=== PATIENT | female | born 1990 | race Caucasian/White ===

== ENCOUNTER 2016-06-04 20:22 | Emergency (ER) | payer OTHER ==
[2016-06-04] MEDS ORDERED: Morphine INJ* 4 MG/ML 1 ML CARPUJECT IV ONE (21:39)
[2016-06-04] MEDS ORDERED: Ondansetron INJ* 2 MG/ML VIAL IV ONE (21:39)
[2016-06-04] MEDS ORDERED: NS 0.9% 1000 ML* 1,000 ML IV ONE (21:39)
[2016-06-04 23:47] LABS: Hematocrit 36 % (35-47); Hemoglobin 12.5 g/dl (12.0-16.0); Mean Corpuscular HGB Conc 34 g/dl (31-36); Mean Corpuscular Hemoglobin 30 pg (27-31); Mean Corpuscular Volume 88 fL (80-97); Mean Platelet Volume 8 um3 (7.4-10.4); Red Blood Count 4.12 10^6/ul (4.0-5.4); Red Cell Distribution Width 13 % (10.5-15)
[2016-06-04 23:56] LABS: Urine Bacteria Absent (Absent); Urine Bilirubin Negative (Negative); Urine Glucose Negative (Negative); Urine Nitrite Negative (Negative)
[2016-06-05 00:04] LABS: Albumin 3.8 g/dL (3.2-5.2); BUN/Creatinine Ratio 17.6 (8-20); EGFR African American 187.5 (>60); EGFR Non-African American 145.8 (>60); Globulin 2.6 g/dL (2-4); Potassium 3.5 mmol/L (3.5-5.0); Total Bilirubin 0.2 mg/dL (0.2-1.0); Total Protein 6.4 g/dL (6.4-8.9)
[2016-06-05 00:18] VITALS: BP 122/82
--- NOTE | 2016-06-05 00:32 | ED ---
Armaan Gonzalez Aidan, scribed for Sue Bermanuel on 06/04/16 at 2146 . Abdominal Pain/Female - HPI Summary HPI Summary: 25 y/o female presents to the ED with a complaint of acute, constant, moderate- to-severe (8/10) bilateral flank pain that is worse on the left side. The pain began 5 days ago and persisted constantly for 4 days before completely resolving for 1 day. Today, the pain came back suddenly. Currently, the patient is 15 weeks . This is her 3rd . Lastly, 2 days ago, she passed a kidney stone. - History of Current Complaint Chief Complaint: EDFlankPain Stated Complaint: LOWER FLANK PAIN Time Seen by Provider: 06/04/16 21:31 Hx Obtained From: Patient ?: Yes Onset/Duration: Sudden Onset, Lasting Days, Still Present Timing: Constant Severity Initially: Moderate Severity Currently: Moderate - [id number] Pain Intensity: 8 - Pt reported an 8/10, however, the nurse's note indicated a 4 /10 Pain Scale Used: 0-10 Numeric Location: Flank - bilateral flank pain worse on the left side Radiates: No Character: Sharp Aggravating Factor(s): Other: - unknown Alleviating Factor(s): Other: - unknown Associated Signs and Symptoms: Positive: Negative - Risk Factors Ovarian Torsion Risk Factor: Reproductive Age Allergies/Adverse Reactions: Allergies Allergy/AdvReac Type Severity Reaction Status Date / Time Codeine Allergy Itching Verified 06/04/16 23:16 PMH/Surg Hx/FS Hx/Imm Hx Infectious Disease History: No Infectious Disease History: Denies: Traveled Outside the [place] in Last 30 Days - Family History Known Family History: Negative: Diabetes - Social History Occupation: Employed Full-time Lives: With Family Alcohol Use: Occasionally Hx Substance Use: No Substance Use Type: Reports: None Smoking Status (MU): Light Every Day Tobacco Smoker Review of Systems Constitutional: Negative Eyes: Negative ENT: Negative Cardiovascular: Negative Respiratory: Negative Gastrointestinal: Negative Positive: flank pain Skin: Negative Neurological: Negative Psychological: Normal All Other Systems Reviewed And Are Negative: Yes Physical Exam Triage Information Reviewed: Yes Vital Signs On Initial Exam: Initial Vitals Temp Pulse Resp BP Pulse Ox 98.4 F 108 16 125/77 100 06/04/16 20:28 06/04/16 20:28 06/04/16 20:28 06/04/16 20:28 06/04/16 20:28 Vital Signs Reviewed: Yes Appearance: Positive: Well-Appearing, Pain Distress - mild Skin: Positive: Warm, Skin Color Reflects Adequate Perfusion, Dry Head/Face: Positive: Normal Head/Face Inspection Eyes: Positive: EOMI, MERLE ENT: Positive: Normal ENT inspection Neck: Positive: Supple, Nontender Respiratory/Lung Sounds: Positive: Clear to Auscultation, Breath Sounds Present Cardiovascular: Positive: RRR, Pulses are Symmetrical in both Upper and Lower Extremities Abdomen Description: Positive: Soft. Negative: Nontender - mild tenderness in left flank Bowel Sounds: Positive: Present Musculoskeletal: Positive: Strength/ROM Intact Neurological: Positive: Sensory/Motor Intact, Alert, Oriented to Person Place, Time Psychiatric: Positive: Affect/Mood Appropriate AVPU Assessment: Alert Diagnostics - Vital Signs Vital Signs Temp Pulse Resp BP Pulse Ox 06/04/16 20:28 98.4 F 108 16 125/77 100 - Laboratory Result Diagrams: 06/04/16 23:10 06/04/16 23:10 Lab Statement: Any lab studies that have been ordered have been reviewed, and results considered in the medical decision making process. - Ultrasound No standard instances Ultrasound Interpretation: No Acute Changes - RENAL US FINDINGS: LEFT KIDNEY MEASURES 12.4CM X 5.0CM. NO LEFT HYDRONEPHROSIS STONE OR OTHER LEFT RENAL ABNORMALITY PREGLTD US PREG FINDINGS: POSITIVE FOR A SINGLE LIVE INTRAUTERINE GESTATION WITH MEASUREMENTS CORRESPONDING TO 16 WEEKS AND 3 DAYS. HEART RATE IS 156 BPM AND MOVEMENT IS OBSERVED. CERVIX MEASURES 2.85CM AND IS CLOSED. RECOMMEND FOLLOWUP IN ANTERIOR PLACENTA. NO ACUTE PLACENTAL ABNORMALITIES. AMNIOTIC FLUID IS AT 7.9CM WHICH IS APPROXIMATELY 5TH PERCENTILE. RECOMMEND FOLLOWUP. Ultrasound Interpretation Completed By: Radiologist - IMAGING MEASUREMENT AND SENSING TECHNICIAN Abdominal Pain Fem Course/Dx - Course Course Of Treatment: This is a 25 y/o female presenting with bilateral flank pain that is worse on the left side. She is currently 15 weeks with her 3rd child. Hx of passing a kidney stone 2 days ago. - Diagnoses Provider Diagnoses: Abdominal pain, Renal calculi, - Provider Notifications Discussed Care Of Patient With: Dr. Presley ([employer] [employer] [employer]) Time Discussed With Above Provider: 00:00 - Dr. Presley requested that the patient be discharged and sent to L and D where Dr. Presley will evaluate the patient. Discharge - Discharge Plan Condition: Stable Disposition: HOME Discharge Disposition Comment: Please follow up with Dr. Presley within the next 3 days. Patient Education Materials: (ED), Renal Colic (ED), Abdominal Pain ( ED) The documentation as recorded by the Armaan jesus Aidan accurately reflects the service I personally performed and the decisions made by , Gregory Berman.
--- NOTE | 2016-06-05 07:37 | RAD ---
INDICATION: Left flank pain. COMPARISON: There are no prior studies available for comparison. TECHNIQUE: Multiple real-time images of the left kidney were obtained. FINDINGS: The left kidney is normal in size shape and echogenicity. The kidney measured 12.4 x 5.0 x 4.8 cm. No significant focal abnormality or hydronephrosis was present. IMPRESSION: NO EVIDENCE FOR HYDRONEPHROSIS.
--- NOTE | 2016-06-05 07:44 | RAD ---
Indication: , abdominal pain. COMPARISON: There are no prior studies available for comparison. TECHNIQUE: Multiple real-time transabdominal images of the pelvis were obtained. FINDINGS: This exam demonstrates a single intrauterine in the breech presentation. cardiac activity and limb motion are noted. The heart rate was 156 beats per minute. The placenta was located anterior. There is no placenta previa. The M attic fluid index measures 7.9 which is at the 5 percentile level. The cervix measured 2.9 cm in length which is lower limits of normal. Biparietal diameter (cm): 3.25 16 weeks 1 day Head circumference (cm): 12.74 16 weeks 4 days Abdominal circumference (cm): 10.53 16 weeks 4 days Femur length (cm): 2.09 16 weeks 2 days The composite estimated gestational age was 16 weeks 3 days. The estimated date of delivery is November 16, 2016. The estimated weight at this time is 154 grams plus or minus 23 grams. The anatomy was not examined on this limited study. IMPRESSION: THERE IS A SINGLE INTRAUTERINE IN THE BREECH PRESENTATION WITH A COMPOSITE ESTIMATED GESTATIONAL AGE OF 16 WEEKS 3 DAYS. THE AMNIOTIC FLUID INDEX IS AT THE 5% LEVEL AND THE CERVICAL LENGTH IS AT THE LOWER LIMITS OF NORMAL. RECOMMEND OBSTETRICAL CONSULTATION AND FOLLOW-UP ULTRASOUND STUDIES.
== END 2016-06-05 00:16 | disposition home or self-care (01) ==
LOC: ED 20:22
DX: N20.0 Calculus of kidney (principal); R10.9 Unspecified abdominal pain; Z3A.15 15 weeks gestation of pregnancy; F17.210 Nicotine dependence, cigarettes, uncomplicated
CPT/HCPCS: 36415; 76775; 76815; 80053; 81003; 81015; 83690; 84702; 85025; 86850; 86900; 86901; 87086; 96374; 96375; 99284; J2270; J2405

== ENCOUNTER 2016-11-08 02:45 | Inpatient (IN) | payer MEDICAID ==
[2016-11-08] MEDS ORDERED: Calcium Carbonate CHEW TAB* 500 MG (TUMS) ONE (04:07)
[2016-11-08 04:43] LABS: Urine Bacteria 1+ (Absent); Urine Bilirubin Negative (Negative); Urine Glucose Negative (Negative); Urine Nitrite Negative (Negative)
[2016-11-08 04:47] LABS: Hematocrit 37 % (35-47); Hemoglobin 12.4 g/dl (12.0-16.0); Mean Corpuscular HGB Conc 33 g/dl (31-36); Mean Corpuscular Hemoglobin 30 pg (27-31); Mean Corpuscular Volume 90 fL (80-97); Red Blood Count 4.15 10^6/ul (4.0-5.4); Red Cell Distribution Width 13 % (10.5-15); White Blood Count 16.5 10^3/ul (3.5-10.8)
[2016-11-08 04:49] LABS: Add Diff/Slide Review? Slide Review Added; Comments Flag Yes
[2016-11-08] MEDS ORDERED: fentaNYL* 50 MCG/ML 2 ML VIAL (100 MCG VIAL) IV SLOW PU ONE (04:55)
[2016-11-08] MEDS ORDERED: fentaNYL* 50 MCG/ML 2 ML VIAL (100 MCG VIAL) ONE (05:03)
[2016-11-08] MEDS ORDERED: OBEPIDURAL* 250 ML ONE (05:18)
[2016-11-08] MEDS ORDERED: Famotidine TAB* 20 MG PO PRN (05:52)
[2016-11-08] MEDS ORDERED: EPHEDrine (Pressors)* 50 MG/ML VIAL IV PUSH PRN ×2 (05:52)
[2016-11-08] MEDS ORDERED: Phenylephrine IV* 40 MCG/ML 10 ML SYRINGE IV PUSH PRN ×2 (05:52)
[2016-11-08] MEDS ORDERED: Sodium Citrate/Citric Acid* 15 ML UDC PO PRN (05:52)
[2016-11-08] MEDS: OBEPIDURAL* 250 ML EPIDURAL SCH (06:14)
[2016-11-08] MEDS ORDERED: Acetaminophen TAB* 325 MG ONE (07:00)
[2016-11-08] MEDS ORDERED: Acetaminophen TAB* 325 MG PO ONE (07:01)
[2016-11-08] MEDS ORDERED: Oxytocin in LR* 20 UNITS/1,000 ML BAG IVPB SCH ×2 (09:00→11:00)
[2016-11-08] MEDS ORDERED: Ropivacaine* 2 MG/ML 20 ML VIAL (0.2%) ONE (10:03)
[2016-11-08] MEDS ORDERED: Witch Hazel PAD* JAR TOPICAL PRN (10:28)
[2016-11-08] MEDS ORDERED: Dibucaine 1% 28.35 GM TUBE PR PRN (10:28)
[2016-11-08] MEDS: Docusate CAP* 100 MG PO SCH ×2 (13:55→19:53)
[2016-11-08] MEDS: Ibuprofen TAB* 600 MG PO PRN ×2 (13:56→19:53)
[2016-11-08] MEDS: Acetaminophen TAB* 325 MG PO PRN (17:24)
[2016-11-08] MEDS: Calcium Carbonate CHEW TAB* 500 MG (TUMS) PO PRN (19:53)
[2016-11-08] MEDS: Simethicone CHEW TAB* 80 MG PO SCH (20:10)
[2016-11-08] MEDS: oxyCODONE/Acetamin 5/325 MG* TAB PO PRN (22:16)
[2016-11-09] MEDS: Docusate CAP* 100 MG PO SCH ×3 (07:02→21:03)
[2016-11-09] MEDS: Ibuprofen TAB* 600 MG PO PRN ×2 (07:02→21:03)
[2016-11-09] MEDS: Simethicone CHEW TAB* 80 MG PO SCH (07:17)
[2016-11-09] MEDS: OBEPIDURAL* 250 ML EPIDURAL SCH (07:22)
[2016-11-09 08:40] LABS: Hematocrit 35 % (35-47); Hemoglobin 11.7 g/dl (12.0-16.0); Mean Corpuscular HGB Conc 33 g/dl (31-36); Mean Corpuscular Hemoglobin 30 pg (27-31); Mean Corpuscular Volume 90 fL (80-97); Mean Platelet Volume 8 um3 (7.4-10.4); Red Blood Count 3.93 10^6/ul (4.0-5.4); Red Cell Distribution Width 13 % (10.5-15)
[2016-11-09 08:41] LABS: Add Diff/Slide Review? Slide Review Added; Comments Flag Yes
[2016-11-09] MEDS ORDERED: Ferrous Gluconate TAB* 324 MG TAB PO SCH (09:00)
[2016-11-09] MEDS: Calcium Carbonate CHEW TAB* 500 MG (TUMS) PO PRN (13:04)
[2016-11-09] MEDS: Acetaminophen TAB* 325 MG PO PRN (13:04)
[2016-11-09] MEDS ORDERED: Ondansetron ODT TAB* 4 MG PO PRN (18:18)
[2016-11-09] MEDS ORDERED: Ondansetron ODT TAB* 4 MG ONE (18:20)
[2016-11-09] MEDS: oxyCODONE/Acetamin 5/325 MG* TAB PO PRN (21:03)
[2016-11-10] MEDS: oxyCODONE/Acetamin 5/325 MG* TAB PO PRN ×2 (03:53→08:18)
[2016-11-10] MEDS: Docusate CAP* 100 MG PO SCH (08:18)
[2016-11-10] MEDS: Ibuprofen TAB* 600 MG PO PRN (08:20)
[2016-11-10 09:57] VITALS: BP 112/71
[2016-11-10] MEDS: Calcium Carbonate CHEW TAB* 500 MG (TUMS) PO PRN (10:39)
== END 2016-11-10 11:51 | disposition home or self-care (01) | DRG 560 ==
LOC: MCHOBOUT 02:45 → MCHOB 04:10
PROVIDERS: ADMIT Midwife; ATTEND Nurse Practitioner
PROC: 10E0XZZ Delivery of Products of Conception, External Approach (ICD-10-PCS; principal; 2016-11-08)
PROC: 10907ZC Drainage of Amniotic Fluid, Therapeutic from Products of Conception, Via Natural or Artificial Opening (ICD-10-PCS; 2016-11-08)
PROC: 4A1HXCZ Monitoring of Products of Conception, Cardiac Rate, External Approach (ICD-10-PCS; 2016-11-08)
DX: O99.334 Smoking (tobacco) complicating childbirth (principal); F17.210 Nicotine dependence, cigarettes, uncomplicated; Z3A.38 38 weeks gestation of pregnancy; Z37.0 Single live birth; Z87.442 Personal history of urinary calculi; O69.81X0 Labor and delivery complicated by cord around neck, without compression, not applicable or unspecified; Z88.2 Allergy status to sulfonamides; Z88.5 Allergy status to narcotic agent
CPT/HCPCS: 36415; 81003; 81015; 85025; 86850; 86900; 86901; 87086; A9270-GY; J2795; J3010